=== PATIENT | male | born 1970 | race Caucasian/White ===

== ENCOUNTER 2017-12-13 07:36 | Outpatient (CLI) | payer BC ==
[2017-12-13] MEDS ORDERED: Iopamidol 370 76% 100 ML VIAL ONE (09:00)
--- NOTE | 2017-12-13 11:01 | CT ---
CT ABDOMEN AND PELVIS WITH CONTRAST: HISTORY: R10.84, generalized abdominal pain. More frequent bowel movements. COMPARISON: None. FINDINGS: Lung bases are clear. No pericardial effusion. The liver, gallbladder, spleen, and pancreas are unremarkable. No hydronephrosis. No abnormal renal enhancing mass. The aortoiliac contour is nonaneurysmal. No r etroperitoneal adenopathy. Moderate stool burden within the rectum. Mild diverticular disease of sigmoid colon without active c urrent inflammation. The appendix is visualized and is normal. The skeleton is unremarkable. IMPRESSION: 1. No acute inflammatory process in the abdomen or pelvis. No findings to explain the patient's abd ominal pain. 2. Normal appendix. 3. Normal gallbladder. 4. No adenopathy or evidence of recent inflammation. POS: [facility]
== END 2017-12-13 07:37 | disposition home or self-care (01) ==
LOC: SCSCT 07:36
PROVIDERS: ATTEND Family Medicine
DX: R10.84 Generalized abdominal pain (principal)
CPT/HCPCS: 74177